=== PATIENT | male | born 1940 | race Caucasian/White ===

== ENCOUNTER → 2017-09-04 | Outpatient (CLI) | payer MEDICARE ==
[~2017-09-04] MED LIST: AMIO200T2 PO; AMLO2.5T PO; AMOX-426 PO; ASPI-1197 PO; CARV6.25 PO; CLOP75TA14 PO; DRON400T2 PO; EZET1TAB21 PO; FOLI1TAB15 PO; FURO20TA6 PO; LEVO25TA54 PO; LOSA50TA37 PO; SIMV40TA5 PO; TERA5CAP4 PO; WARF-67 PO; WARF2.5T85 PO; WARF4TAB72 PO; WARF6TAB49 PO
== END | disposition home or self-care (01) ==
LOC: SHCH 08:56
PROVIDERS: ATTEND Internal Medicine Cardiovascular Disease
DX: I35.8 Other nonrheumatic aortic valve disorders (principal); I25.10 Atherosclerotic heart disease of native coronary artery without angina pectoris
CPT/HCPCS: 93306

== ENCOUNTER 2017-10-09 14:21 | Observation (INO) | payer MEDICARE ==
[~2017-10-09] VITALS: Ht 177.8 cm; Wt 114.3 kg
[~2017-10-09 14:21] MED LIST changes: -AMIO200T2 PO; -AMLO2.5T PO; -ASPI-1197 PO; -CLOP75TA14 PO; -FOLI1TAB15 PO; -FURO20TA6 PO; -SIMV40TA5 PO; -WARF-67 PO; -WARF2.5T85 PO
[2017-10-09 15:00] LABS: BASOPHILS % (AUTO) 0.5 % (0.0-5.0); EOSINOPHILS % (AUTO) 1.6 % (0.0-8.0); HEMATOCRIT 43.1 % (42-54); LYMPHOCYTES % (AUTO) 7.7 % (21.0-51.0); MEAN CORPUSCULAR HEMOGLOBIN 33.7 pg (27.0-33.0); MEAN CORPUSCULAR HGB CONC 34.5 g/dL (32.0-36.0); MEAN CORPUSCULAR VOLUME 97.7 fL (79-99); MONOCYTES % (AUTO) 9.3 % (3.0-13.0); NEUTROPHILS % (AUTO) 80.9 % (40.0-77.0); PLATELET COUNT (AUTO) 114 K/uL (130-400); RED BLOOD CELL COUNT(AUTO) 4.41 MIL/uL (4.50-6.20); RED CELL DISTRIBUTION WIDTH 13.8 % (11.0-15.5); WHITE BLOOD COUNT (AUTO) 5.5 K/uL (4.8-10.8)
[2017-10-09 15:13] LABS: CREATININE 1.1 mg/dL (0.5-1.5); POTASSIUM 3.7 mmol/L (3.5-5.1)
[2017-10-09 15:18] LABS: ALBUMIN 3.2 g/dL (3.5-5.0); BILIRUBIN,TOTAL 1.1 mg/dL (0.2-1.0)
[2017-10-09 15:58] LABS: INR 1.16 (0.85-1.15); PARTIAL THROMBOPLASTIN TIME 36.8 SEC (26.3-35.5); PROTHROMBIN TIME 12.1 SEC (9.6-11.6)
[2017-10-09] MEDS ORDERED: ASPIRIN 325 MG TABLET ONE (17:04)
[2017-10-09] MEDS ORDERED: FUROSEMIDE 10 MG/ML 4ML VIAL ONE (17:04)
[2017-10-09] MEDS ORDERED: FOLI1TAB15 PO (20:10)
[2017-10-09] MEDS ORDERED: ASPI-1197 PO (20:10)
[2017-10-09] MEDS ORDERED: AMLO2.5T PO (20:10)
[2017-10-09] MEDS ORDERED: SIMV40TA5 PO (20:10)
[2017-10-09] MEDS ORDERED: WARF-67 PO (20:10)
[2017-10-09 20:12] VITALS: BP 123/78
[2017-10-09] MEDS ORDERED: IPRATROPIUM/ALBUTEROL SULFATE 3 ML SOLUTION IH PRN ×2 (21:00)
[2017-10-09] MEDS ORDERED: ONDANSETRON HCL MDV 20ML 2 MG/ML VIAL IVP PRN (21:00)
[2017-10-09] MEDS ORDERED: LACTULOSE 20 GM/30 ML UDCUP PO PRN (21:00)
[2017-10-09] MEDS ORDERED: CLONIDINE HCL 0.1 MG TABLET PO PRN (21:00)
[2017-10-09] MEDS ORDERED: ACETAMINOPHEN 325 MG TAB PO PRN ×2 (21:00)
[2017-10-09] MEDS ORDERED: LIDOCAINE HCL-MPF 1% 2ML VIAL IVP PRN ×2 (22:15)
[2017-10-09] MEDS: NITROGLYCERIN 1GM/1 INCH PACKET TD SCH (22:15)
[2017-10-09] MEDS ORDERED: POTASSIUM CHLORIDE 10% ELIXIR 20 MEQ/15 ML UDCUP PO PRN ×2 (22:15)
[2017-10-09] MEDS ORDERED: POTASSIUM CHLORIDE 20 MEQ ERTAB PO PRN ×2 (22:15)
[2017-10-09] MEDS ORDERED: POTASSIUM CHLORIDE 20MEQ/100ML 100 ML IV PRN ×2 (22:15)
[2017-10-09 22:55] LABS: CREATINE KINASE MB 0.6 ng/mL (0.5-3.6); TROPONIN I 0.26 ng/mL (0.00-0.06)
[2017-10-09] MEDS ORDERED: NITROGLYCERIN 1GM/1 INCH PACKET TD ONE (23:07)
[2017-10-09 23:29] VITALS: BP 135/72
[2017-10-10 04:00] VITALS: BP 113/72
[2017-10-10 05:26] LABS: INR 1.1 (0.85-1.15); PROTHROMBIN TIME 11.5 SEC (9.6-11.6)
[2017-10-10 05:31] LABS: CREATININE 1.5 mg/dL (0.5-1.5); POTASSIUM 3.6 mmol/L (3.5-5.1)
[2017-10-10] MEDS: NITROGLYCERIN 1GM/1 INCH PACKET TD SCH (06:05)
[2017-10-10] MEDS ORDERED: LEVOTHYROXINE 25 MCG TABLET PO SCH (07:30)
[2017-10-10 08:00] VITALS: BP 91/54
[2017-10-10] MEDS ORDERED: FUROSEMIDE 10 MG/ML 4ML VIAL IVP SCH (09:00)
[2017-10-10] MEDS ORDERED: LOSARTAN 50 MG TABLET PO SCH (09:00)
[2017-10-10] MEDS ORDERED: AMLODIPINE BESYLATE 2.5 MG TAB PO SCH (09:00)
[2017-10-10] MEDS ORDERED: ASPIRIN 81MG TAB.CHEW PO SCH ×2 (09:00)
[2017-10-10] MEDS ORDERED: ENOXAPARIN SODIUM 40 MG/0.4 ML SYRINGE SQ SCH (09:00)
[2017-10-10] MEDS ORDERED: FOLIC ACID 1 MG TABLET PO SCH (09:00)
[2017-10-10] MEDS ORDERED: CARVEDILOL 6.25 MG TABLET PO SCH (09:00)
[2017-10-10] MEDS: DRONEDARONE HYDROCHLORIDE 400 MG TABLET PO SCH ×2 (09:00→16:52)
[2017-10-10] MEDS ORDERED: FURO20TA6 PO (09:47)
[2017-10-10 11:00] VITALS: BP_SYST 73; BP_SYST 82; BP_DIAS 48; BP_DIAS 60
[2017-10-10 14:48] LABS: APPEARANCE,URINE Cloudy (CLEAR); BILIRUBIN,URINE Negative (NEGATIVE); COLOR,URINE Dark Yellow (YELLOW); GLUCOSE, URINE (UA) Negative (NEGATIVE); KETONES,URINE Negative (NEGATIVE); LEUKOCYTE ESTERASE ,URINE Negative (NEGATIVE); NITRATE,URINE Negative (NEGATIVE); OCCULT BLOOD,URINE Negative (NEGATIVE); PROTEIN,URINE POS 1+ (NEGATIVE)
[2017-10-10 14:59] LABS: HYALINE CASTS, URINE 26-50 /LPF (0-1 /LPF)
[2017-10-10 15:00] LABS: BACTERIA,URINE Few /HPF (None Seen); MUCUS,URINE Few LPF (None Seen); RBC,URINE None Seen /HPF (0-1)
[2017-10-10 15:30] VITALS: BP 104/58
[2017-10-10 15:35] VITALS: BP 96/60
[2017-10-10 15:40] VITALS: BP 100/64
[2017-10-10] MEDS ORDERED: WARFARIN SODIUM 2 MG TAB PO SCH (17:00)
[2017-10-10] MEDS ORDERED: TERAZOSIN HCL 5 MG CAPSULE PO SCH (21:00)
[2017-10-10] MEDS ORDERED: ATORVASTATIN CALCIUM 20 MG TABLET PO SCH (21:00)
== END 2017-10-10 18:00 | disposition home or self-care (01) ==
LOC: EDH 14:21 → EDHIP 17:00 → 2AH 19:53
PROVIDERS: ADMIT Family Medicine; ATTEND Family Medicine
DX: R50.9 Fever, unspecified (principal); I48.0 Paroxysmal atrial fibrillation; I11.0 Hypertensive heart disease with heart failure; I50.21 Acute systolic (congestive) heart failure; I25.10 Atherosclerotic heart disease of native coronary artery without angina pectoris; E78.5 Hyperlipidemia, unspecified; Z95.1 Presence of aortocoronary bypass graft; Z95.0 Presence of cardiac pacemaker; Z86.73 Personal history of transient ischemic attack (TIA), and cerebral infarction without residual deficits; Z82.49 Family history of ischemic heart disease and other diseases of the circulatory system; Z79.01 Long term (current) use of anticoagulants; Z98.49 Cataract extraction status, unspecified eye
CPT/HCPCS: 36415 ×2; 71045; 80048; 80053; 81001; 82550 ×2; 82553; 83874; 83880; 84484 ×2; 85025; 85610 ×2; 85730; 87804 ×2; 93005; 94664; 99291; G0378 ×25; J1940

== ENCOUNTER 2017-10-24 05:48 | Inpatient (IN) | payer MEDICARE ==
[2017-10-23 15:47] LABS: BASOPHILS % (AUTO) 0.8 % (0.0-5.0); EOSINOPHILS % (AUTO) 0.8 % (0.0-8.0); HEMATOCRIT 45.2 % (42-54); LYMPHOCYTES % (AUTO) 25.6 % (21.0-51.0); MEAN CORPUSCULAR HEMOGLOBIN 33.6 pg (27.0-33.0); MEAN CORPUSCULAR HGB CONC 34.2 g/dL (32.0-36.0); MEAN CORPUSCULAR VOLUME 98.4 fL (79-99); MONOCYTES % (AUTO) 10.8 % (3.0-13.0); PLATELET COUNT (AUTO) 245 K/uL (130-400); RED BLOOD CELL COUNT(AUTO) 4.59 MIL/uL (4.50-6.20); RED CELL DISTRIBUTION WIDTH 13.8 % (11.0-15.5); WHITE BLOOD COUNT (AUTO) 5.1 K/uL (4.8-10.8)
[2017-10-23 15:52] LABS: APPEARANCE,URINE Clear (CLEAR); BILIRUBIN,URINE Negative (NEGATIVE); COLOR,URINE Yellow (YELLOW); GLUCOSE, URINE (UA) Negative (NEGATIVE); KETONES,URINE Negative (NEGATIVE); LEUKOCYTE ESTERASE ,URINE Negative (NEGATIVE); NITRATE,URINE Negative (NEGATIVE); OCCULT BLOOD,URINE Negative (NEGATIVE); PROTEIN,URINE Negative (NEGATIVE); UROBILINOGEN,URINE 0.2 mg/dL (0.2-1.0)
[2017-10-23 15:56] LABS: CREATININE 1.2 mg/dL (0.5-1.5); POTASSIUM 4.3 mmol/L (3.5-5.1)
[2017-10-23 16:00] VITALS: BP 122/80
[2017-10-23 16:00] LABS: INR 1.04 (0.85-1.15); PARTIAL THROMBOPLASTIN TIME 27.5 SEC (26.3-35.5); PROTHROMBIN TIME 10.9 SEC (9.6-11.6)
[~2017-10-24] VITALS: Ht 177.8 cm; Wt 117.9 kg
[2017-10-24] VITALS (22 sets, daily range): BP systolic 95–131; BP diastolic 65–87
[~2017-10-24 05:48] MED LIST changes: -AMOX-426 PO; +ASPI-1197 PO; -EZET1TAB21 PO; +FOLI1TAB15 PO; +FURO20TA6 PO; -LOSA50TA37 PO; +SIMV40TA5 PO; +WARF-67 PO; -WARF4TAB72 PO; -WARF6TAB49 PO
[2017-10-24] MEDS ORDERED: WARF2.5T85 PO (06:37)
[2017-10-24] MEDS ORDERED: SODIUM CHLORIDE 0.9% 1000ML 1,000 ML IV SCH (08:00)
[2017-10-24] MEDS ORDERED: LIDOCAINE HCL 1% 20 ML VIAL ONE ×2 (08:13→09:34)
[2017-10-24] MEDS ORDERED: ISOVUE-370 50ML VIAL IV ONE (08:13)
[2017-10-24] MEDS ORDERED: HEPARIN SODIUM 1000UNIT/ML 10ML VIAL ONE ×2 (08:13→09:58)
[2017-10-24] MEDS ORDERED: SODIUM BICARB 50MEQ 50ML VIAL ONE (08:13)
[2017-10-24] MEDS ORDERED: NITROGLYCERIN 5 MG/ML 10 ML VIAL IV ONE (08:13)
[2017-10-24] MEDS ORDERED: IOPAMIDOL-370 100 ML VIAL IV ONE (08:13)
[2017-10-24] MEDS ORDERED: MEPERIDINE-PF 25 MG/ML SYG ONE ×4 (08:14→11:18)
[2017-10-24] MEDS ORDERED: MIDAZOLAM HCL 1 MG/ML 2ML VIAL ONE ×4 (08:14→11:18)
[2017-10-24] MEDS ORDERED: ADENOSINE 3 MG/ML 2ML VIAL IV ONE (09:05)
[2017-10-24] MEDS ORDERED: CLOPIDOGREL BISULFATE 300 MG TAB ONE (11:09)
[2017-10-24] MEDS ORDERED: ASPIRIN 325MG EC TAB 325 MG TABLET.DR PO ONE (11:09)
[2017-10-24] MEDS: SODIUM CHLORIDE 0.9% 1000ML 1,000 ML IV SCH (11:10)
[2017-10-24] MEDS ORDERED: MORPHINE SULFATE 4 MG/1ML SYG IV PRN (11:15)
[2017-10-24] MEDS ORDERED: ONDANSETRON HCL 4 MG/2 ML VIAL IVP SCH (11:15)
[2017-10-24] MEDS ORDERED: ALPRAZOLAM 0.5 MG TABLET PO PRN (11:15)
[2017-10-24] MEDS ORDERED: MORPHINE SULFATE 5 MG/ML VIAL IV PRN (11:15)
[2017-10-24] MEDS ORDERED: PHARMACY COMMUNICATION MISC SCH ×2 (11:15→12:00)
[2017-10-24] MEDS ORDERED: ONDANSETRON HCL 4 MG/2 ML VIAL IVP PRN (11:15)
[2017-10-24] MEDS ORDERED: PROPOFOL 10 MG/ML 20ML VIAL IV ONE (11:21)
[2017-10-24] MEDS ORDERED: CLOP75TA14 PO (11:25)
[2017-10-24] MEDS ORDERED: AMIODARONE HCL 50 MG/ML 3 ML VIAL ONE (11:33)
[2017-10-24] MEDS ORDERED: AMIODARONE HCL 300 MG in DEXTROSE 5%-WATER 100 ML IV ONE (12:00)
[2017-10-24] MEDS ORDERED: AMIODARONE HCL 700 MG in DEXTROSE 5%-WATER 500 ML IV ONE (12:30)
[2017-10-24] MEDS: AMIODARONE HCL 200 MG TABLET PO SCH (12:35)
[2017-10-24] MEDS ORDERED: MORPHINE SULFATE 4 MG/1ML SYG IVP SCH ×2 (13:00)
[2017-10-24] MEDS: MORPHINE SULFATE 4 MG/1ML SYG IV PRN ×2 (14:42→17:46)
[2017-10-24] MEDS ORDERED: ATROPINE SULFATE 0.1 MG/ML 10 ML SYG IVP ONE (19:39)
[2017-10-24] MEDS ORDERED: TERAZOSIN HCL 5 MG CAPSULE PO SCH (21:00)
[2017-10-24] MEDS ORDERED: ATORVASTATIN CALCIUM 20 MG TABLET PO SCH (21:00)
[2017-10-24] MEDS: CARVEDILOL 6.25 MG TABLET PO SCH (22:00)
[2017-10-25] VITALS (18 sets, daily range): BP systolic 99–136; BP diastolic 67–88
[2017-10-25] MEDS: SODIUM CHLORIDE 0.9% 1000ML 1,000 ML IV SCH (00:30)
[2017-10-25 03:34] LABS: HEMATOCRIT 37.6 % (42-54); MEAN CORPUSCULAR HEMOGLOBIN 33.9 pg (27.0-33.0); MEAN CORPUSCULAR HGB CONC 34.1 g/dL (32.0-36.0); MEAN CORPUSCULAR VOLUME 99.5 fL (79-99); PLATELET COUNT (AUTO) 148 K/uL (130-400); RED BLOOD CELL COUNT(AUTO) 3.78 MIL/uL (4.50-6.20); RED CELL DISTRIBUTION WIDTH 13.6 % (11.0-15.5); WHITE BLOOD COUNT (AUTO) 5.9 K/uL (4.8-10.8)
[2017-10-25 03:44] LABS: POTASSIUM 4.4 mmol/L (3.5-5.1)
[2017-10-25] MEDS ORDERED: LEVOTHYROXINE 25 MCG TABLET PO SCH (06:30)
[2017-10-25] MEDS: CARVEDILOL 6.25 MG TABLET PO SCH (08:50)
[2017-10-25] MEDS: AMIODARONE HCL 200 MG TABLET PO SCH (08:50)
[2017-10-25] MEDS ORDERED: FUROSEMIDE 20 MG TABLET PO SCH (09:00)
[2017-10-25] MEDS ORDERED: CLOPIDOGREL BISULFATE 75 MG TAB PO SCH (09:00)
[2017-10-25] MEDS ORDERED: FOLIC ACID 1 MG TABLET PO SCH (09:00)
[2017-10-25] MEDS ORDERED: ASPIRIN 81MG TAB.CHEW PO SCH ×2 (09:00)
[2017-10-25] MEDS ORDERED: AMIO200T5 PO (17:54)
[2017-10-25] MEDS ORDERED: WARFARIN SODIUM 2.5 MG TAB PO SCH (21:00)
== END 2017-10-25 18:40 | disposition home or self-care (01) | DRG 215 ==
LOC: DAH 05:48 → DAHIP 05:49 → 2CH 12:18
PROVIDERS: ADMIT Internal Medicine; ATTEND Internal Medicine
PROC: 02HA3RZ Insertion of Short-term External Heart Assist System into Heart, Percutaneous Approach (ICD-10-PCS; principal; 2017-10-24)
PROC: 4A023N7 Measurement of Cardiac Sampling and Pressure, Left Heart, Percutaneous Approach (ICD-10-PCS; 2017-10-24)
PROC: B2111ZZ Fluoroscopy of Multiple Coronary Arteries using Low Osmolar Contrast (ICD-10-PCS; 2017-10-24)
PROC: 5A0221D Assistance with Cardiac Output using Impeller Pump, Continuous (ICD-10-PCS; 2017-10-24)
PROC: 02703ZZ Dilation of Coronary Artery, One Artery, Percutaneous Approach (ICD-10-PCS; 2017-10-24)
PROC: 027135Z Dilation of Coronary Artery, Two Arteries with Two Drug-eluting Intraluminal Devices, Percutaneous Approach (ICD-10-PCS; 2017-10-24)
PROC: B2151ZZ Fluoroscopy of Left Heart using Low Osmolar Contrast (ICD-10-PCS; 2017-10-24)
PROC: B41D1ZZ Fluoroscopy of Aorta and Bilateral Lower Extremity Arteries using Low Osmolar Contrast (ICD-10-PCS; 2017-10-24)
PROC: 4B02XSZ Measurement of Cardiac Pacemaker, External Approach (ICD-10-PCS; 2017-10-24)
PROC: B2181ZZ Fluoroscopy of Left Internal Mammary Bypass Graft using Low Osmolar Contrast (ICD-10-PCS; 2017-10-24)
PROC: 5A2204Z Restoration of Cardiac Rhythm, Single (ICD-10-PCS; 2017-10-24)
DX: I25.110 Atherosclerotic heart disease of native coronary artery with unstable angina pectoris (principal); D68.69 Other thrombophilia; I48.92 Unspecified atrial flutter; I48.0 Paroxysmal atrial fibrillation; I50.22 Chronic systolic (congestive) heart failure; I11.0 Hypertensive heart disease with heart failure; I25.5 Ischemic cardiomyopathy; E03.9 Hypothyroidism, unspecified; E66.9 Obesity, unspecified; E78.5 Hyperlipidemia, unspecified; Z79.01 Long term (current) use of anticoagulants; Z95.0 Presence of cardiac pacemaker; Z95.1 Presence of aortocoronary bypass graft; Z68.37 Body mass index [BMI] 37.0-37.9, adult
CPT/HCPCS: 33990; 36415; 71045; 80048; 81003; 85025; 85027; 85347; 85610; 85730; 92960; 93005; 93286; 93459; 99156; 99157; A4606; C1725; C1760; C1769; C1887; C1894; C9600; C9604; J0153; J0282; J0461; J1644; J2175; J2250; J2270; J2405; J2704; J3490; J7030; J7060; Q9967

== ENCOUNTER 2018-03-27 10:52 | Day surgery (SDC) | payer MEDICARE ==
[2018-03-23 08:54] VITALS: BP 134/80
[2018-03-23 08:57] LABS: BASOPHILS % (AUTO) 0.6 % (0.0-5.0); EOSINOPHILS % (AUTO) 1.1 % (0.0-8.0); HEMATOCRIT 44.3 % (42-54); LYMPHOCYTES % (AUTO) 22.2 % (21.0-51.0); MEAN CORPUSCULAR HEMOGLOBIN 33.7 pg (27.0-33.0); MEAN CORPUSCULAR HGB CONC 33.9 g/dL (32.0-36.0); MEAN CORPUSCULAR VOLUME 99.4 fL (79-99); MONOCYTES % (AUTO) 11.5 % (3.0-13.0); NEUTROPHILS % (AUTO) 64.6 % (40.0-77.0); PLATELET COUNT (AUTO) 139 K/uL (130-400); RED BLOOD CELL COUNT(AUTO) 4.45 MIL/uL (4.50-6.20); RED CELL DISTRIBUTION WIDTH 13.8 % (11.0-15.5); WHITE BLOOD COUNT (AUTO) 3.5 K/uL (4.8-10.8)
[2018-03-23 09:07] LABS: CREATININE 1.2 mg/dL (0.5-1.5); POTASSIUM 4.3 mmol/L (3.5-5.1)
[2018-03-23 09:10] LABS: INR 1.43 (0.85-1.15); PARTIAL THROMBOPLASTIN TIME 38.3 SEC (26.3-35.5); PROTHROMBIN TIME 14.9 SEC (9.6-11.6)
[~2018-03-27] VITALS: Ht 177.8 cm; Wt 101.2 kg
[2018-03-27] VITALS (9 sets, daily range): BP systolic 97–127; BP diastolic 65–87
[~2018-03-27 10:52] MED LIST changes: +AMIO200T5 PO; +CEFAZOLIN SODIUM 1 GM VIAL IVP SCH; +CLOP75TA14 PO; -DRON400T2 PO; +SODIUM CHLORIDE 0.9% 500ML 500 ML IV SCH; -WARF-67 PO; +WARF2.5T85 PO
[2018-03-27] MEDS ORDERED: SODIUM CHLORIDE 0.9% 1000ML 1,000 ML IV ONE (11:43)
[2018-03-27] MEDS ORDERED: BUPIVACAINE/PF 0.25% 50ML VIAL IJ ONE (14:27)
[2018-03-27] MEDS ORDERED: CEFAZOLIN SODIUM 1 GM VIAL ONE (14:27)
[2018-03-27] MEDS ORDERED: LIDOCAINE HCL 1% MDV 50ML VIAL ONE (14:27)
[2018-03-27] MEDS ORDERED: MIDAZOLAM HCL 1 MG/ML 2ML VIAL ONE ×2 (14:30→15:00)
[2018-03-27] MEDS ORDERED: MEPERIDINE-PF 25 MG/ML SYG ONE ×2 (14:30→15:00)
[2018-03-27] MEDS ORDERED: ACETAMINOPHEN 325 MG TAB PO PRN (15:15)
[2018-03-27] MEDS ORDERED: ONDANSETRON HCL 4 MG/2 ML VIAL IV PRN (15:15)
[2018-03-27] MEDS ORDERED: ACETAMINOPHEN-CODEINE 300/30MG TAB PO PRN (15:15)
[2018-03-27] MEDS ORDERED: OCTYL 2-CYANOACRYLATE 1 EACH TP ONE (15:20)
== END 2018-03-27 19:00 | disposition home or self-care (01) ==
LOC: DAH 10:52
PROVIDERS: ATTEND Internal Medicine Cardiovascular Disease
DX: Z45.010 Encounter for checking and testing of cardiac pacemaker pulse generator [battery] (principal); I25.10 Atherosclerotic heart disease of native coronary artery without angina pectoris; I10 Essential (primary) hypertension; E03.9 Hypothyroidism, unspecified; E78.5 Hyperlipidemia, unspecified; Z86.73 Personal history of transient ischemic attack (TIA), and cerebral infarction without residual deficits; I48.0 Paroxysmal atrial fibrillation; I49.5 Sick sinus syndrome; Z95.5 Presence of coronary angioplasty implant and graft; Z79.01 Long term (current) use of anticoagulants; Z95.1 Presence of aortocoronary bypass graft; Z82.49 Family history of ischemic heart disease and other diseases of the circulatory system
CPT/HCPCS: 33228; 36415; 80048; 85025; 85610; 85730; 93005; 99156; 99157; A4606; C1785; J0690; J2175 ×2; J2250 ×2; J3490 ×2; J7030

== ENCOUNTER → 2018-06-14 | Outpatient (CLI) | payer MEDICARE ==
[~2018-06-14] MED LIST changes: -CEFAZOLIN SODIUM 1 GM VIAL IVP SCH; -SODIUM CHLORIDE 0.9% 500ML 500 ML IV SCH
== END | disposition home or self-care (01) ==
LOC: SLP 20:28
PROVIDERS: ATTEND Internal Medicine
DX: G47.33 Obstructive sleep apnea (adult) (pediatric) (principal)
CPT/HCPCS: 95810

== ENCOUNTER → 2018-06-28 | Outpatient (CLI) | payer MEDICARE | END | disposition home or self-care (01) | LOC: SLP 20:34 | PROVIDERS: ATTEND Internal Medicine | DX: G47.33 Obstructive sleep apnea (adult) (pediatric) (principal); I10 Essential (primary) hypertension | CPT/HCPCS: 95811 ==

== ENCOUNTER → 2018-11-13 | Outpatient (CLI) | payer MEDICARE ==
[2018-11-13 09:49] LABS: BASOPHILS % (AUTO) 0.7 % (0.0-5.0); EOSINOPHILS % (AUTO) 0.6 % (0.0-8.0); HEMATOCRIT 42.8 % (42-54); LYMPHOCYTES % (AUTO) 10.5 % (21.0-51.0); MEAN CORPUSCULAR HEMOGLOBIN 33.8 pg (27.0-33.0); MEAN CORPUSCULAR VOLUME 99.5 fL (79-99); MONOCYTES % (AUTO) 10.3 % (3.0-13.0); NEUTROPHILS % (AUTO) 77.9 % (40.0-77.0); PLATELET COUNT (AUTO) 158 K/uL (130-400); RED CELL DISTRIBUTION WIDTH 13.5 % (11.0-15.5); WHITE BLOOD COUNT (AUTO) 6.7 K/uL (4.8-10.8)
== END | disposition home or self-care (01) ==
LOC: LAB 09:19
PROVIDERS: ATTEND Urology
DX: R31.0 Gross hematuria (principal)
CPT/HCPCS: 36415; 80048; 85025

== ENCOUNTER → 2018-11-15 | Outpatient (CLI) | payer MEDICARE ==
[~2018-11-15] MED LIST changes: +IOHEXOL 350 MG/ML 100ML INFUS..BTL IV ONE
== END | disposition home or self-care (01) ==
LOC: RAH 09:28
PROVIDERS: ATTEND Urology
DX: K57.90 Diverticulosis of intestine, part unspecified, without perforation or abscess without bleeding (principal); K44.9 Diaphragmatic hernia without obstruction or gangrene; I70.90 Unspecified atherosclerosis; J98.11 Atelectasis; M47.815 Spondylosis without myelopathy or radiculopathy, thoracolumbar region; N32.89 Other specified disorders of bladder
CPT/HCPCS: 74178; Q9967

== ENCOUNTER → 2020-08-10 | Outpatient (CLI) | payer MEDICARE ==
[~2020-08-10] MED LIST changes: -AMIO200T5 PO; +AMIO200T6 PO; -IOHEXOL 350 MG/ML 100ML INFUS..BTL IV ONE; +SIMV-46 PO; -SIMV40TA5 PO
== END | disposition home or self-care (01) ==
LOC: SHCH 10:01
PROVIDERS: ATTEND Internal Medicine Cardiovascular Disease
DX: I08.2 Rheumatic disorders of both aortic and tricuspid valves (principal); I25.5 Ischemic cardiomyopathy
CPT/HCPCS: 93306

== ENCOUNTER 2021-02-25 07:39 | Emergency (ER) | payer MEDICARE ==
[~2021-02-25] VITALS: Ht 180.3 cm; Wt 108.9 kg
[2021-02-25 07:40] VITALS: BP 183/86
[2021-02-25 08:10] LABS: APPEARANCE,URINE CLEAR (CLEAR); BILIRUBIN,URINE NEGATIVE (NEGATIVE); COLOR,URINE YELLOW (YELLOW); GLUCOSE, URINE (UA) NEGATIVE (NEGATIVE); KETONES,URINE NEGATIVE (NEGATIVE); LEUKOCYTE ESTERASE ,URINE NEGATIVE (NEGATIVE); NITRATE,URINE NEGATIVE (NEGATIVE); OCCULT BLOOD,URINE TRACE-INTACT (NEGATIVE); PH,URINE 7.5 (5.0-8.0); PROTEIN,URINE NEGATIVE (NEGATIVE); UROBILINOGEN,URINE 0.2 mg/dL (0.2-1.0)
[2021-02-25] MEDS ORDERED: TAMS-1 PO (08:13)
[2021-02-25] MEDS ORDERED: CIPR-278 PO (08:13)
[2021-02-25 08:32] LABS: BACTERIA,URINE None Seen /HPF (None Seen); SQUAMOUS EPITHELIAL CELL,UR None Seen /HPF (0-2)
== END 2021-02-25 08:59 | disposition home or self-care (01) ==
LOC: EDH 07:39
DX: N40.0 Benign prostatic hyperplasia without lower urinary tract symptoms (principal); R33.9 Retention of urine, unspecified; I10 Essential (primary) hypertension; E78.5 Hyperlipidemia, unspecified; E78.00 Pure hypercholesterolemia, unspecified; Z79.899 Other long term (current) drug therapy; Z79.01 Long term (current) use of anticoagulants; Z79.82 Long term (current) use of aspirin; Z98.890 Other specified postprocedural states
CPT/HCPCS: 51702; 81001

== ENCOUNTER → 2021-05-05 | Outpatient (CLI) | payer MEDICARE ==
[~2021-05-05] MED LIST changes: -AMIO200T6 PO; +AMIO200T68 PO; +CIPR-278 PO; +TAMS-1 PO
== END | disposition home or self-care (01) ==
LOC: RAH 11:00
PROVIDERS: ATTEND Internal Medicine
DX: S99.922A Unspecified injury of left foot, initial encounter (principal); X58.XXXA Exposure to other specified factors, initial encounter; Y93.89 Activity, other specified; Y92.89 Other specified places as the place of occurrence of the external cause; Y99.8 Other external cause status
CPT/HCPCS: 73630

== ENCOUNTER → 2021-07-21 | Outpatient (CLI) | payer MEDICARE | END | disposition home or self-care (01) | LOC: SHCH 10:00 | PROVIDERS: ATTEND Internal Medicine Cardiovascular Disease | DX: I08.8 Other rheumatic multiple valve diseases (principal); I49.5 Sick sinus syndrome; I11.9 Hypertensive heart disease without heart failure; E78.5 Hyperlipidemia, unspecified | CPT/HCPCS: 93306 ==

== ENCOUNTER → 2022-09-23 | Outpatient (CLI) | payer MEDICARE ==
[~2022-09-23] MED LIST changes: -AMIO200T68 PO; -ASPI-1197 PO; -CIPR-278 PO; +CLOP-31 PO; -CLOP75TA14 PO; +FINA5TAB41 PO; -FURO20TA6 PO; -LEVO25TA54 PO; +LEVO50CA4 PO; +OSEL75 PO; +PANT40TA55 PO; +RIVA20TA PO; +SIMV-43 PO; -SIMV-46 PO; -TERA5CAP4 PO; -WARF2.5T85 PO
== END | disposition home or self-care (01) ==
LOC: SHCH 08:09
PROVIDERS: ATTEND Internal Medicine Cardiovascular Disease
DX: I08.0 Rheumatic disorders of both mitral and aortic valves (principal); I48.0 Paroxysmal atrial fibrillation; I11.9 Hypertensive heart disease without heart failure; E78.5 Hyperlipidemia, unspecified; Z95.0 Presence of cardiac pacemaker; Z95.1 Presence of aortocoronary bypass graft
CPT/HCPCS: 93306

== ENCOUNTER 2022-12-26 10:02 | Observation (INO) | payer MEDICARE ==
[2022-12-22 12:54] LABS: BASOPHILS % (AUTO) 0.4 % (0.0-5.0); EOSINOPHILS % (AUTO) 0.8 % (0.0-8.0); HEMATOCRIT 40.8 % (42-54); LYMPHOCYTES % (AUTO) 23.6 % (21.0-51.0); MEAN CORPUSCULAR HGB CONC 31.4 g/dL (32.0-36.0); MEAN CORPUSCULAR VOLUME 92.3 fL (79-99); MONOCYTES % (AUTO) 8.3 % (3.0-13.0); NEUTROPHILS % (AUTO) 66.7 % (40.0-77.0); PLATELET COUNT (AUTO) 184 K/uL (130-400); RED BLOOD CELL COUNT(AUTO) 4.42 MIL/uL (4.50-6.20); RED CELL DISTRIBUTION WIDTH 14.5 % (11.0-15.5); WHITE BLOOD COUNT (AUTO) 4.9 K/uL (4.8-10.8)
[2022-12-22 13:02] LABS: CREATININE 1.1 mg/dL (0.5-1.5); POTASSIUM 3.8 mmol/L (3.5-5.1)
[2022-12-22 13:12] LABS: INR 1.12 (0.85-1.15); PROTHROMBIN TIME 12.9 SEC (9.6-11.6)
[2022-12-22 13:13] LABS: PARTIAL THROMBOPLASTIN TIME 39.3 SEC (26.3-35.5)
[2022-12-22 13:23] VITALS: BP 144/80; PULSE 64; RESP 18
[~2022-12-26] VITALS: Ht 180.3 cm; Wt 89.7 kg
[~2022-12-26 10:02] MED LIST changes: +FERR-72 PO; +FURO20TA4 PO; +LINA145C PO; -OSEL75 PO; +PANT40TA54 PO; -PANT40TA55 PO
[2022-12-26 10:07] VITALS: BP 154/71; PULSE 71; RESP 20
[2022-12-26] MEDS ORDERED: 0.9%NACL 1000ML 1,000 ML IV ONE (10:15)
[2022-12-26] MEDS ORDERED: BUPIVACAINE/PF 0.25% 10ML VIAL IJ ONE (13:43)
[2022-12-26] MEDS ORDERED: LIDOCAINE HCL 1% MDV 50ML VIAL ONE (13:43)
[2022-12-26] MEDS ORDERED: IODIXANOL 320 MG/ML 100 ML VIAL ONE (13:44)
[2022-12-26] MEDS ORDERED: MIDAZOLAM HCL 1 MG/ML 2ML VIAL ONE ×3 (13:44→15:37)
[2022-12-26] MEDS ORDERED: MEPERIDINE-PF 50 MG/ML SYG ONE (13:44)
[2022-12-26] MEDS ORDERED: CEFAZOLIN SODIUM 1 GM VIAL ONE (13:44)
[2022-12-26] MEDS ORDERED: MEPERIDINE-PF 25 MG/ML SYG ONE ×2 (14:41→15:37)
[2022-12-26] MEDS ORDERED: THROMBIN-JMI 5000 UNIT/VIAL TP ONE (15:45)
[2022-12-26] MEDS ORDERED: ACETAMINOPHEN WITH CODEINE 1 TAB TAB PO PRN ×2 (16:30)
[2022-12-26] MEDS ORDERED: TEMAZEPAM 30 MG CAP PO PRN (16:30)
[2022-12-26] MEDS ORDERED: ONDANSETRON 4MG INJ IV PRN (16:30)
[2022-12-26 17:00] VITALS: BP 156/91; PULSE 61; RESP 20
[2022-12-26 19:56] VITALS: BP 151/89; PULSE 62; RESP 20
[2022-12-26] MEDS: TAMSULOSIN HCL 0.4 MG CAP.ER.24H PO SCH (21:00)
[2022-12-26] MEDS ORDERED: SIMVASTATIN 20 MG TABLET PO SCH (21:00)
[2022-12-26] MEDS: CARVEDILOL 6.25 MG TABLET PO SCH (21:00)
[2022-12-26] MEDS ORDERED: FINASTERIDE 5 MG TABLET PO SCH (21:00)
[2022-12-26] MEDS: CEFAZOLIN SODIUM 1 GM VIAL IVPB SCH (23:37)
[2022-12-26 23:48] VITALS: BP 148/78; PULSE 68; RESP 20
[2022-12-27 03:51] VITALS: BP 131/73; PULSE 60; RESP 20
[2022-12-27] MEDS: CEFAZOLIN SODIUM 1 GM VIAL IVPB SCH (06:10)
[2022-12-27] MEDS ORDERED: LEVOTHYROXINE 50 MCG TABLET PO SCH (06:30)
[2022-12-27 08:08] VITALS: BP 122/67; PULSE 60; RESP 16
[2022-12-27] MEDS ORDERED: CLOPIDOGREL 75MG TAB PO SCH (09:00)
[2022-12-27] MEDS ORDERED: PANTOPRAZOLE 40 MG TAB DR PO SCH (09:00)
[2022-12-27] MEDS ORDERED: NON-FORMULARY MEDICATION 1 EACH (Levothyroxine Sodium (Levothyroxine) 50 MCG) PO SCH (09:00)
[2022-12-27] MEDS ORDERED: FOLIC ACID 1 MG TABLET PO SCH (09:00)
[2022-12-27] MEDS ORDERED: Linaclotide (Linzess) 145 MCG PO SCH (09:00)
[2022-12-27] MEDS ORDERED: NON-FORMULARY MEDICATION 1 EACH (Ferrous Sulfate 325 MG) PO SCH (09:00)
[2022-12-27] MEDS ORDERED: FERROUS SULFATE 325 MG TABLET.DR PO SCH (09:00)
[2022-12-27] MEDS: TAMSULOSIN HCL 0.4 MG CAP.ER.24H PO SCH (09:09)
[2022-12-27] MEDS: CARVEDILOL 6.25 MG TABLET PO SCH (09:10)
[2022-12-27] MEDS ORDERED: RIVAROXABAN 20 MG TABLET PO SCH (10:14)
[2022-12-27 11:11] VITALS: BP 120/70; PULSE 85; RESP 16
[2022-12-28] MEDS ORDERED: FUROSEMIDE 20 MG TABLET PO SCH (09:00)
== END 2022-12-27 14:55 | disposition home or self-care (01) ==
LOC: DAH 10:02 → 2AH 10:03 → DAH 10:03
PROVIDERS: ADMIT Internal Medicine Cardiovascular Disease; ATTEND Internal Medicine Cardiovascular Disease
DX: I49.5 Sick sinus syndrome (principal); I25.10 Atherosclerotic heart disease of native coronary artery without angina pectoris; I48.21 Permanent atrial fibrillation; I45.9 Conduction disorder, unspecified; I10 Essential (primary) hypertension; E78.5 Hyperlipidemia, unspecified; E03.9 Hypothyroidism, unspecified; Z95.0 Presence of cardiac pacemaker; Z95.1 Presence of aortocoronary bypass graft; Z79.899 Other long term (current) drug therapy
CPT/HCPCS: 80048; 85025; 85610; 85730; 36415; 93005 ×2; 36005; 75820; 33207; 37248; 71046; C1769 ×2; C1725; C1786; C1898; C1894; G0378 ×29; J0690 ×3; J7030; J2250 ×2; J3490 ×3; J2175 ×2; Q9967; A4215; A4223 ×3; A4222; A4221; A4663; A4216; A4606; 96365; 96366; 99156; 99157

== ENCOUNTER → 2023-10-25 | Outpatient (CLI) | payer MEDICARE | END | disposition home or self-care (01) | LOC: SHCH 09:33 | PROVIDERS: ATTEND Internal Medicine Cardiovascular Disease | DX: I08.8 Other rheumatic multiple valve diseases (principal); I11.9 Hypertensive heart disease without heart failure; E78.5 Hyperlipidemia, unspecified; I25.10 Atherosclerotic heart disease of native coronary artery without angina pectoris; Z95.1 Presence of aortocoronary bypass graft; Z95.0 Presence of cardiac pacemaker | CPT/HCPCS: 93306 ==

== ENCOUNTER → 2023-10-27 | Outpatient (CLI) | payer MEDICARE ==
[2023-10-27] MEDS: REGADENOSON 0.4 MG/5 ML PF SYG IVP ONE (15:48)
== END | disposition home or self-care (01) ==
LOC: SHCH 08:28
PROVIDERS: ATTEND Internal Medicine Cardiovascular Disease
DX: I51.7 Cardiomegaly (principal); I25.10 Atherosclerotic heart disease of native coronary artery without angina pectoris; I48.91 Unspecified atrial fibrillation
CPT/HCPCS: 78452; 96374; 93017; J2785; A9500 ×2

== ENCOUNTER → 2024-09-26 | Outpatient (CLI) | payer MEDICARE ==
[~2024-09-26] MED LIST changes: -LEVO50CA4 PO; +LEVO50CA5 PO; -TAMS-1 PO; +TAMS-55 PO
== END | disposition home or self-care (01) ==
LOC: SHCH 13:16
PROVIDERS: ATTEND Internal Medicine Cardiovascular Disease
DX: I08.3 Combined rheumatic disorders of mitral, aortic and tricuspid valves (principal); I25.10 Atherosclerotic heart disease of native coronary artery without angina pectoris
CPT/HCPCS: 93306